=== PATIENT | female | born 1975 | race Caucasian/White ===

== ENCOUNTER → 2018-09-26 08:07 | Outpatient (CLI) | payer BC, SELFPAY ==
--- NOTE | 2018-09-26 08:18 | MM_ITS ---
MM Dig screening mamm BI w/CAD CAD Screening COMPARISON: None, this is baseline INDICATION: There is no personal or family history of breast cancer TECHNIQUE: Standard CC and MLO images were obtained. R2 CAD reviewed. FINDINGS: Prominent fibro glandular densities are seen in the central portions of both breasts. There is no suspicious lesion in either breast and there are no suspicious microcalcifications. IMPRESSION: Moderate diffuse breast density with no suspicious lesion seen BI-RADS Category: 1 Negative RECOMMENDED FOLLOW-UP: 1YR - 1 YEAR FOLLOW-UP (A letter has been sent to the patient regarding results of the study.)
== END ==
PROVIDERS: PCP Internal Medicine Adolescent Medicine; Visit Provider Obstetrics & Gynecology Gynecology
DX: Z12.31 Encounter for screening mammogram for malignant neoplasm of breast (principal)
CPT/HCPCS: 77067

== ENCOUNTER → 2021-08-25 08:16 | Outpatient (CLI) | payer BC, SELFPAY ==
[2021-08-25 09:13] LABS: Basophils % 0.4 % (0.1-2.0); Eosinophils # 0.1 K/mm3 (0.0-0.4); Eosinophils % 0.8 % (0.1-12.0); Hematocrit 41.9 % (37.0-47.0); Hemoglobin 13.2 g/dL (12.2-16.2); Lymphocytes # 0.9 K/mm3 (0.7-4.5); Mean Corpuscular HGB Conc 31.6 g/dL (31.8-35.4); Mean Corpuscular Hemoglobin 30.8 pg (27.0-31.2); Mean Corpuscular Volume 97.7 fl (81-99); Mean Platelet Volume 7.7 fl (7.4-10.4); Monocytes # 0.3 K/mm3 (0.1-1.0); Monocytes % 4.5 % (1.7-9.3); Neutrophils # 5.3 K/mm3 (1.8-7.8); Neutrophils % 81.3 % (37.0-80.0); Platelet Count 331 K/mm3 (142-424); Red Blood Count 4.29 M/mm3 (4.20-5.40); Red Cell Distribution Width 13.3 % (11.5-17.5); White Blood Count 6.5 K/mm3 (4.8-10.8)
[2021-08-25 10:18] LABS: Chloride 103 mmol/L (98-107); Potassium 3.8 mmoL/L (3.5-5.1); Sodium 136 mmol/L (136-145)
[2021-08-25 10:20] LABS: Alanine Aminotransferase 21 U/L (12-78); Alkaline Phosphatase 78 U/L (38-126); Anion Gap 11.8 mEq/L (5-15); Aspartate Amino Transferase 29 U/L (14-36); Blood Urea Nitrogen 11 mg/dl (7-17); Carbon Dioxide 25 mmol/L (22.0-30.0); Estimated Glomerular Filt Rate 109 ml/min (>60); GFR (African American) 132 ML/MIN (>60)
[2021-08-25 10:21] LABS: Albumin Level 3.6 g/dl (3.5-5.0); Albumin/Globulin Ratio 1.2 (1.1-1.8); Calcium 8.3 mg/dl (8.4-10.2); Globulin 2.9 g/dL (1.3-3.2); Glucose 160 mg/dl (74-100); Total Protein,Serum 6.5 g/dl (6.3-8.2)
[2021-08-25 10:24] LABS: Bilirubin,Total < 0.1 mg/dl (0.2-1.3)
[2021-08-25 10:49] LABS: Thyroid Stimulating Hormone 1.67 uIU/mL (0.465-4.68)
[2021-08-26 08:22] LABS: FSH 2.1 mIU/mL (.); LH 3.5 mIU/mL (.)
[2021-08-26 13:27] LABS: Hemoglobin A1C 5.2 % (4.0-6.0)
[2021-08-28 02:08] LABS: Estrogen 73 pg/mL (.)
== END ==
PROVIDERS: Visit Provider Nurse Practitioner Family
DX: I10 Essential (primary) hypertension (principal); N93.9 Abnormal uterine and vaginal bleeding, unspecified; R73.9 Hyperglycemia, unspecified
CPT/HCPCS: 36415; 80053; 82672; 83001; 83002; 83036; 84443; 85025

== ENCOUNTER → 2023-06-07 07:16 | Outpatient (CLI) | payer BC, SELFPAY ==
--- NOTE | 2023-06-07 07:17 | CT_ITS ---
FINAL REPORT TECHNIQUE: Thin section axial CT images with coronal and sagittal reformats were performed through the neck. This study was performed with techniques to keep radiation doses as low as reasonably achievable (ALARA). Individualized dose reduction techniques using automated exposure control or adjustment of mA and/or kV according to the patient''s size were employed. CLINICAL HISTORY: left tonsil lesion x2 years increasing in size COMPARISON: None FINDINGS: The right tonsillar pillar is slightly thicker compared with the left, a nonspecific finding but favor inflammatory etiology. Salivary glands are normal. Larynx is unremarkable. Thyroid gland is unremarkable. Mild right maxillary soft tissue thickening is present. IMPRESSION: Right tonsillar pillar slightly thicker compared with the left without a focal mass identified, nonspecific but favor inflammatory etiology. Reviewed, Interpreted and Dictated by Filiberto Cornejo III, MD Transcribed by Juju Fernández Authenticated and [facility]
== END ==
PROVIDERS: PCP Internal Medicine Adolescent Medicine; Visit Provider Nurse Practitioner
DX: D49.0 Neoplasm of unspecified behavior of digestive system (principal)
CPT/HCPCS: 70490

== ENCOUNTER → 2023-08-22 08:19 | Outpatient (CLI) | payer BC, SELFPAY ==
[2023-08-22 09:00] LABS: Hemoglobin A1C 5.3 % (4.0-6.0)
[2023-08-22 09:58] LABS: Alanine Aminotransferase 14 U/L (12-78); Albumin Level 3.8 g/dl (3.5-5.0); Albumin/Globulin Ratio 1.4 (1.1-1.8); Alkaline Phosphatase 64 U/L (38-126); Anion Gap 10.3 mEq/L (5-15); Aspartate Amino Transferase 26 U/L (14-36); Bilirubin,Total 0.2 mg/dl (0.2-1.3); Blood Urea Nitrogen 13 mg/dl (7-17); Calcium 8.8 mg/dl (8.4-10.2); Carbon Dioxide 28 mmol/L (22.0-30.0); Chloride 103 mmol/L (98-107); Chol/HDL Ratio 2.2 (1-3.5); Cholesterol 181 mg/dl (140-200); Estimated Glomerular Filt Rate 90 ml/min (>60); GFR (African American) 109 ML/MIN (>60); Globulin 2.8 g/dL (1.3-3.2); Glucose 98 mg/dl (74-100); HDL Cholesterol 83 mg/dl (40-60); Potassium 4.3 mmoL/L (3.5-5.1); Sodium 137 mmol/L (136-145); Total Protein,Serum 6.6 g/dl (6.3-8.2); Triglycerides 96 mg/dl (30-150); VLDL Cholesterol 19 mg/dL (0-40)
[2023-08-22 10:09] LABS: Direct LDL Cholesterol 82.09 mg/dL (100-129)
[2023-08-22 10:27] LABS: Thyroid Stimulating Hormone 3.83 uIU/mL (0.465-4.68)
== END ==
PROVIDERS: PCP Internal Medicine Adolescent Medicine; Visit Provider Internal Medicine Endocrinology, Diabetes & Metabolism
DX: E66.3 Overweight (principal); Z68.27 Body mass index [BMI] 27.0-27.9, adult
CPT/HCPCS: 36415; 80053; 80061; 83036; 84443

== ENCOUNTER → 2023-10-20 10:29 | Outpatient (CLI) | payer BC, SELFPAY ==
[2023-10-20 11:06] LABS: Basophils # 0.1 K/mm3 (0-0.2); Basophils % 1.1 % (0.1-2.0); Eosinophils # 0.2 K/mm3 (0.0-0.4); Hematocrit 45.2 % (37.0-47.0); Hemoglobin 14.9 g/dL (12.2-16.2); Lymphocytes # 2.9 K/mm3 (0.7-4.5); Lymphocytes % 38.2 % (10-50); Mean Corpuscular Hemoglobin 30.4 pg (27.0-31.2); Mean Corpuscular Volume 92.3 fl (81-99); Mean Platelet Volume 7.9 fl (7.4-10.4); Monocytes # 0.2 K/mm3 (0.1-1.0); Monocytes % 3.1 % (1.7-9.3); Neutrophils # 4.2 K/mm3 (1.8-7.8); Neutrophils % 55.5 % (37.0-80.0); Platelet Count 357 K/mm3 (142-424); Red Cell Distribution Width 13.4 % (11.5-17.5); White Blood Count 7.6 K/mm3 (4.8-10.8)
[2023-10-20 11:33] LABS: Alanine Aminotransferase 17 U/L (12-78); Albumin Level 4.1 g/dl (3.5-5.0); Albumin/Globulin Ratio 1.4 (1.1-1.8); Alkaline Phosphatase 77 U/L (38-126); Anion Gap 10.3 mEq/L (5-15); Aspartate Amino Transferase 25 U/L (14-36); Bilirubin,Total 0.4 mg/dl (0.2-1.3); Blood Urea Nitrogen 17 mg/dl (7-17); Calcium 8.8 mg/dl (8.4-10.2); Carbon Dioxide 25 mmol/L (22.0-30.0); Chloride 103 mmol/L (98-107); Chol/HDL Ratio 2.9 (1-3.5); Cholesterol 247 mg/dl (140-200); Estimated Glomerular Filt Rate 68 ml/min (>60); GFR (African American) 82 ML/MIN (>60); Glucose 93 mg/dl (74-100); HDL Cholesterol 85 mg/dl (40-60); Potassium 4.3 mmoL/L (3.5-5.1); Sodium 134 mmol/L (136-145); Total Protein,Serum 7.1 g/dl (6.3-8.2); Triglycerides 196 mg/dl (30-150); VLDL Cholesterol 39 mg/dL (0-40)
[2023-10-20 11:37] LABS: Hemoglobin A1C 5.3 % (4.0-6.0)
[2023-10-20 12:07] LABS: Thyroid Stimulating Hormone 2.77 uIU/mL (0.465-4.68)
[2023-10-21 05:05] LABS: FSH 10.8 mIU/mL (.); LH 5.4 mIU/mL (.)
[2023-10-25 02:08] LABS: Estrogen 85 pg/mL (.)
== END ==
LOC: LAB 10:30
PROVIDERS: PCP Internal Medicine Adolescent Medicine; Visit Provider Internal Medicine Adolescent Medicine
DX: Z00.00 Encounter for general adult medical examination without abnormal findings (principal); N95.1 Menopausal and female climacteric states
CPT/HCPCS: 36415; 80053; 80061; 82672; 83001; 83002; 83036; 84443; 85025

== ENCOUNTER 2024-05-21 10:45 | Outpatient (CLI) | payer BC, SELFPAY ==
--- NOTE | 2024-05-21 10:46 | MM_ITS ---
PROCEDURE INFORMATION: Exam: MG Bilateral Screening 3D Mammography Exam date and time: 05/21/2024 10:31 AM Age: 48 years old Clinical indication: Screening. No family history of breast cancer. TECHNIQUE: Imaging protocol: Bilateral Screening tomosynthesis and 2D mammography including computer-aided detection (CAD) when performed. COMPARISON: MG SCBI MM Dig screening mamm BI w/CAD 09/26/2018 8:43 AM FINDINGS: MAMMOGRAPHY: Breast composition: The breasts are heterogeneously dense, which may obscure small masses. Mass: None. Architectural distortion: None. Calcifications: No suspicious calcifications. Asymmetric density: None. Skin thickening: None. Axillary adenopathy: None. IMPRESSION: No mammographic evidence of malignancy. Annual screening is recommended unless otherwise clinically indicated. ASSESSMENT: BI-RADS Category 1: Negative
== END 2024-05-21 23:59 | disposition home or self-care (01) ==
LOC: RAD 10:46
PROVIDERS: PCP Nurse Practitioner Family; Visit Provider Obstetrics & Gynecology
DX: Z12.31 Encounter for screening mammogram for malignant neoplasm of breast (principal)
CPT/HCPCS: 77063; 77067

== ENCOUNTER 2025-06-24 10:17 | Outpatient (CLI) | payer BC, SELFPAY ==
--- OUTSIDE RECORDS SUMMARY | 2024-11-25 06:00 | XMS_ITS ---
Author Organization [facility] Address [address] [place], [place] [address] Care Team Providers Care Molder Pipe Covering Name Role Phone Juanjose Wells Primary Care Provider Tania Kenyon [facility] [phone] REASON FOR VISIT wt ck Encounters Encounter Location Date Provider Diagnosis [facility] [address] [place], [place] [address] 11/25/2024 Tania Kenyon Plan Of Treatment No Information Progress Notes * Sumi NIELSEN SDOB:[birth year] (49 yo F)Acc No.[id number]:11/25/2024 Progress Notes Patient: Sumi CABRAL Provider: DEANNE Jo :1975 A ge:48 Y S ex:Female Date:11/25/2024 Address:[address], [phone] Pcp:Juanjose Wells Subjective: * Chief Complaints: * 1 . Wt ck. * Medical History: Objective: * Vitals: Assessment: Plan: * Treatment: * * Electronic signature of Ana Kenyon APRN on 06/24/2025 at 10:55 AM EDT Sign off status: Pending * Provider: DEANNE Jo Date: 0 11/25/2024 Generated for Radha vázquez/Siva/Jose on: 0 06/24/2025 10:55 AM EDT
--- OUTSIDE RECORDS SUMMARY | 2025-01-25 17:30 | XMS_ITS ---
Author Organization [facility] Address [address] [place] [address] Care Team Providers Care Deckhand Clam Dredge Name Role Phone Juanjose Wells Primary Care Provider [phone] Tania Kenyon Unavailable [phone] Migration, Provider Unavailable Unavailable REASON FOR VISIT [facility] Conversion Encounter Medications Medication SIG (Take, Route, Frequency, Duration) Notes Start Date End Date Status Ondansetron HCl 4 MG 1 tab(s) orally sveta ry 8 hours as needed for nausea; Duration: 3 days prn 09/25/2023 Active Lisinopril-hydroCHLOROthia zide 10-12.5 MG 1 tab(s) orally once a day; Duration: 90 days Active buPROPion HCl ER (XL) 300 MG 1 tab(s) orally every 24 hours; Duration: 90 days Active Acyclovir 400 MG 1 tab(s) orally 3 ti mes a day as needed; Duration: 5 days Active Tri-Sprintec 0.18/0.215/0.25 MG-35 MCG 1 tab(s) orally once a day; Duration: 84 days Active Spironolactone 100 MG 1 tab(s) orally once a day Active Spironolactone 50 MG 1 tab(s) orally Active Zepbound 7.5 MG/0.5ML 7.5 mg subcutaneou sly once a week; Duration: 28 days 01/09/2025 Active Flonase Allergy Relief 50 MCG/ACT 2 spray(s) each nostril once a day prn; Duration: 30 days 10/19/2010 Active Imitrex 100 MG 1 tab(s) orally once , repeat in 2 hours if needed; Duration: 30 days prn 03/19/2013 Active Encounters Encounter Location Date Provider Diagnosis [facility] [address] [place] [address] 01/25/2025 Provider Migration Encounter for weight management Z76.89 Assessments Encounter Date Diagnosis (ICD Code) Assessment Notes Treatment Notes Treatment Clinical Notes Section Notes 01/25/2025 Encounter for weight management (ICD-10 - Z76.89) Plan Of Treatment Medication Medication Name Sig Start Date Stop Date Notes Zepbound 7.5 MG/0.5ML 7.5 mg subcutaneou sly once a week; Duration: 28 days 01/09/2025 Progress Notes * Sumi NIELSEN SDOB:[birth year] (49 yo F)Acc No.[id number]:01/25/2025 Patient: Kartik BEBETOLORELEISumi Provider: Shey andrew Migration :1975 A ge:49 Y S ex:Female Date:01/25/2025 Address:[address] [place] [address], [id number] Pcp:Juanjose Wells Subjective: * Chief Complaints: * 1 . [facility]. * Medical History: * Medications: T aking Imitrex 100 MG Tablet 1 tab(s) orally once, repeat in 2 hours if needed , Notes to Pharmacist: prn, Taking Flonase Allergy Relief 50 MCG/ACT Suspension 2 spray(s) each nostril once a day prn , Taking Spironolactone 50 MG Tablet 1 tab(s) orally , Taking Spironolactone 100 MG Tablet 1 tab(s) orally once a day , Taking Ondansetron HCl 4 MG Tablet 1 tab(s) orally every 8 hours as needed for nausea , Notes to Pharmacist: prn, Taking Tri-Sprintec 0.18/0.215/0.25 MG-35 MCG Tablet 1 tab(s) orally once a day , Taking Acyclovir 400 MG Tablet 1 tab(s) orally 3 times a day as needed , Taking buPROPion HCl ER (XL) 300 MG Tablet Extended Release 24 Hour 1 tab(s) orally every 24 hours , Taking Lisinopril-hydroCHLOROthiazide 10-12.5 MG Tablet 1 tab(s) orally once a day Objective: * Vitals: Assessment: * Assessment: 1. E ncounter for weight management - Z76.89 Plan: * Treatment: * * Electronic signature of Baltazar canales Migration on 06/24/2025 at 10:56 AM EDT Sign off status: Pending * Provider: Shey andrew Migration Date: 0 01/25/2025 Generated for Radha vázquez/Siva/Jose on: 0 06/24/2025 10:56 AM EDT
--- OUTSIDE RECORDS SUMMARY | 2025-06-11 05:45 | XMS_ITS ---
Author Organization [facility] Address [address] [place] [address] Care Team Providers Care Import/Export Specialist Name Role Phone Juanjose Wells Primary Care Provider [phone] Tania Kenyon [phone] Allergies No Known Allergies REASON FOR VISIT Med check Medications Medication SIG (Take, Route, Frequency, Duration) Notes Start Date End Date Status Spironolactone 100 MG 1 tab(s) orally on ce a day Active buPROPion HCl ER (XL) 300 MG 1 tab(s) orally every 24 hours; Duration: 90 days Active Wegovy 1.7 MG/0.75ML 0.75 mL Subcutaneou s once a week; Duration: 28 days 04/09/2025 Active Acyclovir 400 MG 1 tab(s) orally 3 ti mes a day as needed; Duration: 5 days Active Tri-Sprintec 0.18/0.215/0.25 MG-35 MCG 1 tab(s) orally once a day; Duration: 84 days Active Imitrex 100 MG 1 tab(s) orally once , repeat in 2 hours if needed; Duration: 30 days prn 03/19/2013 Active Flonase Allergy Relief 50 MCG/ACT 2 spray(s) each nostril once a day prn; Duration: 30 days 10/19/2010 Active Lisinopril-hydroCHLOROthiaz chely 10-12.5 MG 1 tab(s) orally once a day; Duration: 90 days Active Ondansetron HCl 4 MG 1 tab(s) orally sveta ry 8 hours as needed for nausea; Duration: 3 days prn 09/25/2023 Active Problems Problem Type SNOMED Code ICD Code Onset Dates Problem Status W/U Status Risk Notes Problem Prediabetes (548241478) Prediabetes (R73.03) Active confirmed Vital Signs Temperature 97.5 degrees Fahrenheit 06/11/20 25 Blood pressure systolic 122 mm Hg 06/11/20 25 Blood pressure diastolic 80 mm Hg 025 Heart Rate 82 /min 06/11/2025 Height 61.75 in 06/11/2025 Weight 132 lbs 06/11/2025 BMI 24.34 kg/m2 06/11/2025 Encounters Encounter Location Date Provider Diagnosis [address] [address] 06/11/2025 Tania Kenyon Essential hypertensi on I10 ; Encounter for weight management Z76.89 ; History of obesity in adulthood Z86.39 ; Chronic allergic rhinitis J30.9 ; Cystic acne L70.0 ; Depression with anxiety F41.8 ; Abnormal uterine bleeding N93.9 ; Mild hyperlipidemia E78.5 ; Prediabetes R73.03 and Visit for screening mammogram Z12.31 Assessments Encounter Date Diagnosis (ICD Code) Assessment Notes Treatment Notes Treatment Clinical Notes Section Notes 06/11/2025 Essential hypertension (ICD-10 - I10) Well-control led on current regimen 06/11/2025 Encounter for weight management (ICD-10 - Z76.89) Doing well with transition to [facility]. Near goal weight of 125 lbs which would be BMI 23. She is compliant with diet and exercise recommendations and has been working with a health financial coach through her insurance plan 06/11/2025 History of obesity in adulthood (ICD-10 - Z86.39) 06/11/2025 Chronic allergic rhinitis (ICD-10 - J30.9) Continue loratadine and flonase 06/11/2025 Cystic acne (ICD-10 - L70.0) continue spironolactone 06/11/2025 Depression with anxiety (ICD-10 - F41.8) continue wellbutrin 06/11/2025 Abnormal uterine bleeding (ICD-10 - N93.9) continue OCP 06/11/2025 Mild hyperlipidemia (ICD-10 - E78.5) monitor, fasting labs 06/11/2025 Prediabetes (ICD-10 - R73.03) continue with dietary change/weight loss, update labs as noted 06/11/2025 Visit for screening mammogram (ICD-10 - Z12.31) Plan Of Treatment Medication Medication Name Sig Start Date Stop Date Notes Lisinopril-hydroCHLOROthiazi de 10-12.5 MG 1 tab(s) orally once a day; Duration: 90 days Ondansetron HCl 4 MG 1 tab(s) orally sveta ry 8 hours as needed for nausea; Duration: 3 days 09/25/2023 prn Treatment Notes Assessment Notes Essential hypertension Well-controlled o n current regimen Pending Test Test Name Order Date Mammogram: Screening 06/11/2025 LIPID PANEL, STANDARD (7600) 06/11/2025 COMPREHENSIVE METABOLIC PANEL (59041) CBC (INCLUDES DIFF/PLT) (6399) HEMOGLOBIN A1c (496) 06/11/2025 FERRITIN (457) 06/11/2025 Next Appt Details Follow Up: 6 Months, Reason: Progress Notes * GIA, Sumi SDOB:[birth year] (49 yo F)Acc No.[id number]:06/11/2025 Progress Notes Patient: Sumi CABRAL Provider: DEANNE Jo :1975 A ge:49 Y S ex:Female Date:06/11/2025 Address:[address] [place] [id number] Pcp:Juanjose Wells Subjective: * Chief Complaints: * 1 . Med check. * HPI: g en: 49-year-old female presents today for chronic disease follow-up. No acute concerns. She has recently transition from Zepbound to Wegovy because of insurance formulary changes. She is tolerating it well. Weight loss continues, denies medication side effects at this point. Recently increased to 1.7 mg weekly. She is still faithful with her exercise and dieting. Blood pressure remains very well-controlled on her current regimen. Allergies are stable. Migraines are sporadic. She is still following with [facility] regarding heavy menstrual flow, still taking oral contraceptives and they have not recommended any other intervention. Spironolactone for acne has been very effective. She would like a refill on Zofran for as needed use for motion sickness. Mood has been stable on bupropion. * ROS: R ESPIRATORY: Reviewed, No Symptoms Reported: Y es. C ARDIOLOGY: Reviewed, No Symptoms Reported: Y es. C ONSTITUTIONAL: Weight loss yes, i ntentional. D ERMATOLOGY: no R sarita. G ASTROENTEROLOGY: Reviewed, No Symptoms Reported: Y es. U ROLOGY: Reviewed, No Symptoms Reported: Y es. * Medical History: I nterstitial cystitis, Hypertension, Anxiety, ADD, Adult acne. * Surgical History: S timulation Device Implant 2010, Stimulator device replacement 2017, inject meds into nerve under bladder 09/2022, bladder sling , replaced battery for Stimulation device 01/2024. * Hospitalization/Major Diagno stic Procedure: S timulation Device Impplant 2002. * Family History: F ather: alive, Throat cancer. M other: , Heart Attack. P aternal Grand Father: . P aternal Grand Mother: . M aternal Grand Father: , Suicide. Maternal Grand Mother: . P aternal uncle: alive. P aternal aunt: alive. M aternal uncle: , Heart Attack. M aternal aunt: . S iblings: alive, brother-htn, diagnosed with Hypertension. C hildren: alive, allergies, asthma. 1 brother(s) , 2 sister(s) - healthy. 1 son(s) - healthy. . * Social History: S moking A re you a:: nonsmoker. R ecreational drug use: no. Exercise: yes. Home smoke detector use: yes. Caffeine: no. Living Will: No. Alcohol: socially. Sexually active: yes. Travel outside [place]: no. 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 * Medications: T aking Imitrex 100 MG Tablet 1 tab(s) orally once, repeat in 2 hours if needed , Notes to Pharmacist: prn, Taking Flonase Allergy Relief 50 MCG/ACT Suspension 2 spray(s) each nostril once a day prn , Taking Spironolactone 100 MG Tablet 1 tab(s) orally once a day , Taking Ondansetron HCl 4 MG Tablet 1 tab(s) orally every 8 hours as needed for nausea , Notes to Pharmacist: prn, Taking Tri-Sprintec 0.18/0.215/0.25 MG-35 MCG Tablet 1 tab(s) orally once a day , Taking Acyclovir 400 MG Tablet 1 tab(s) orally 3 times a day as needed , Taking Lisinopril-hydroCHLOROthiazide 10-12.5 MG Tablet 1 tab(s) orally once a day , Taking buPROPion HCl ER (XL) 300 MG Tablet Extended Release 24 Hour 1 tab(s) orally every 24 hours , Taking Wegovy 1.7 MG/0.75ML Solution Auto-injector 0.75 mL Subcutaneous once a week , Discontinued Spironolactone 50 MG Tablet 1 tab(s) orally , Medication List reviewed and reconciled with the patient * Allergies: N .K.D.A. Objective: * Vitals: N urse: dw, Pain: 0, Temp: 97.5, RR: 18, HR: 82, BP: 122/80, Ht: 61.75, Wt: 132, BMI:24.34. * Examination: G eneral Examination: General P leasant and Cooperative, NAD on RA,. Heart: R egular Rate and Rhythm, no murmur, rubs or gallops. Lungs: L CTAB, No wheezes, crackles or rhonchi, Good air movement,. Abdomen: S oft, NTND, BSNA, No organomegaly or peritoneal signs.. Skin: w ithout acute rashes. Peripheral pulses: n ormal (2+) bilaterally. neck s upple,, no thyromegaly,, no lymphadenopathy,. Psych N ormal Mood/Affect. Assessment: * Assessment: 1. E ssential hypertension - I10 (Primary) 2 . E ncounter for weight management - Z76.89 3 . H istory of obesity in adulthood - Z86.39 4 .?Chronic allergic rhinitis - J30.9 5 . C ystic acne - L70.0 6 . D epression with anxiety - F41.8 7 . A bnormal uterine bleeding - N93.9? 8. M ild hyperlipidemia - E78.5 9 . P rediabetes - R73.03? 10. V isit for screening mammogram - Z12.31 Plan: * Treatment: 2. E ayanaunter for weight management Clinical Notes: Doing well with transition to Wegovy. Near goal weight of 125 lbs which would be BMI 23. She is compliant with diet and exercise recommendations and has been working with a health financial coach through her insurance plan 3. C hronic allergic rhinitis Clinical Notes: Continue loratadine and flonase 4. C ystic acne Clinical Notes: continue spironolactone 5. D epression with anxiety Clinical Notes: continue wellbutrin 6. A bnormal uterine bleeding L AB: LIPID PANEL, STANDARD (7600) L AB: COMPREHENSIVE METABOLIC PANEL (76678) L AB: CBC (INCLUDES DIFF/PLT) (6399) L AB: HEMOGLOBIN A1c (496) L AB: FERRITIN (457) Clinical Notes: continue OCP 7. M ild hyperlipidemia L AB: LIPID PANEL, STANDARD (7600) L AB: COMPREHENSIVE METABOLIC PANEL (38182) L AB: CBC (INCLUDES DIFF/PLT) (6399) L AB: HEMOGLOBIN A1c (496) Clinical Notes: monitor, fasting labs 8. P rediabetes L AB: LIPID PANEL, STANDARD (7600) L AB: COMPREHENSIVE METABOLIC PANEL (14310) L AB: CBC (INCLUDES DIFF/PLT) (6399) L AB: HEMOGLOBIN A1c (496) Clinical Notes: continue with dietary change/weight loss, update labs as noted 9. V isit for screening mammogram I maging: Mammogram: Screening 10.?Others? Refill Ondansetron HCl Tablet, 4 MG, 1 tab(s), orally, every 8 hours as needed for nausea, 3 days, 12, Refills 1, Notes to Pharmacist: prn.?? * Preventive Medicine: Screening / Special Tests: M ammogram n eeds to be scheduled. P ap Smear?followed by [facility]. * Follow Up: 6 Months * * Sign off status: Completed true * Provider: DEANNE Jo Date: 0 06/11/2025 Generated for Radha vázquez/Siva/eTransmitting on: 0 06/24/2025 10:56 AM EDT History and Physical Notes * Examination Category Sub-Category Detail Notes Category Not es General Examination Heart: Regular Rate and Rhythm, no murmur, rubs or gallops Lungs: LCTAB, No wheezes, c rackles or rhonchi, Good air movement, Abdomen: Soft, NTND, BSNA, No organomegaly or peritoneal signs. Skin: without acute rashes Peripheral pulses: normal (2+) bilatera lly neck supple,, no thyromeg sonya,, no lymphadenopathy, General Pleasant and Coopera tive, NAD on RA, Psych Normal Mood/Affect
--- NOTE | 2025-06-24 10:19 | MM_ITS ---
PROCEDURE INFORMATION: Exam: MG Bilateral Screening 3D Mammography Exam date and time: 06/24/2025 10:26 AM Age: 49 years old Clinical indication: Screening. No family history of breast cancer. TECHNIQUE: Imaging protocol: Bilateral Screening tomosynthesis and 2D mammography including computer-aided detection (CAD) when performed. COMPARISON: 1. MG MM DIG SCREENING MAMM BI W/CAD 05/21/2024 10:31 AM 2. MG SCBI MM Dig screening mamm BI w/CAD 09/26/2018 8:43 AM FINDINGS: MAMMOGRAPHY: Breast composition: The breasts are heterogeneously dense, which may obscure small masses. Mass: None. Architectural distortion: None. Calcifications: No suspicious calcifications. Asymmetric density: None. Skin thickening: None. Axillary adenopathy: None. IMPRESSION: No mammographic evidence of malignancy. Annual screening is recommended unless otherwise clinically indicated. ASSESSMENT: BI-RADS Category 1: Negative.
--- OUTSIDE RECORDS SUMMARY | 2025-06-24 10:56 | XMS_ITS | Patient Health Record ---
Author Organization [facility] Address [address] [place] [address] Care Team Providers Care Lead Data Architect Name Role Phone Juanjose Wells Primary Care Provider [phone] Tania Kenyon Unavailable [phone] Migration, Provider Unavailable Unavailable Allergies No Known Allergies Medications Medication SIG (Take, Route, Frequency, Duration) Notes Start Date End Date Status Spironolactone 100 MG 1 tab(s) orally on ce a day Active Imitrex 100 MG 1 tab(s) orally once , repeat in 2 hours if needed; Duration: 30 days prn 03/19/2013 Active Flonase Allergy Relief 50 MCG/ACT 2 spray(s) each nostril once a day prn; Duration: 30 days 10/19/2010 Active buPROPion HCl ER (XL) 300 MG 1 tab(s) orally every 24 hours; Duration: 90 days Active Wegovy 1.7 MG/0.75ML 0.75 mL Subcutaneou s once a week; Duration: 28 days 04/09/2025 Active Acyclovir 400 MG 1 tab(s) orally 3 ti mes a day as needed; Duration: 5 days Active Lisinopril-hydroCHLOROthiaz chely 10-12.5 MG 1 tab(s) orally once a day; Duration: 90 days Active Ondansetron HCl 4 MG 1 tab(s) orally sveta ry 8 hours as needed for nausea; Duration: 3 days prn 09/25/2023 Active Tri-Sprintec 0.18/0.215/0.25 MG-35 MCG 1 tab(s) orally once a day; Duration: 84 days Active Immunizations Vaccine Route Administration Date Status Comme nts Influenza-Fluzone 3+years (NON-MEDICARE) IM Intramuscular 08/25/2016 Administered Influenza-Fluzone 3+years (NON-MEDICARE) IM Intramuscular 08/14/2017 Administered Influenza-Fluzone 3+years (NON-MEDICARE) IM Intramuscular 10/05/2018 Administered Hep A Adult 2 Dose IM Intramuscular 10/05/2018 Administere d Hep A Adult 2 Dose IM Intramuscular 04/05/2019 Administere d Problems Problem Type SNOMED Code ICD Code Onset Dates Problem Status W/U Status Risk Notes Problem Attention deficit hyperactivity disorder, predominantly inattentive type (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) Attention or concentration deficit (799.51) Active confirmed Problem Overweight (385935255) Overweight (E66.3) Active confirmed Problem Mixed anxiety and depressive disorder (603221384) Depression with anxiety (F41.8) Active confirmed Problem Essential hypertension (18889868) Essential hypertension (I10) Active confirmed Problem Overweight (649934512) Overweight (BMI 25.0-29.9) (E66.3) Active confirmed Problem BMI 25-29 - overweight (641923914) BMI 27.0-27.9,adult (Z68.27) Active confirmed Problem Restless legs (29398230) RLS (restless legs syndrome) (G25.81) Active confirmed Problem Allergic rhinitis (71844555) Chronic allergic rhinitis (J30.9) Active confirmed Problem Cystic acne (80663646) Cystic acne (L70.0) Active confirmed Problem BMI 25-29 - overweight (380487761) BMI 29.0-29.9,adult (Z68.29) Active confirmed Problem Body mass index 25-29 - overweight (723133365) BMI 26.0-26.9,adult (Z68.26) Active confirmed Problem Prediabetes (297208227) Prediabetes (R73.03) Active confirmed Problem Sciatica (55738855) Acute right-sided back pain with sciatica (M54.41) Active confirmed Problem Hyperlipidemia (57635851) Mild hyperlipidemia (E78.5) Active confirmed Problem Abnormal uterine bleeding (48335929070919) Abnormal uterine bleeding (N93.9) Active confirmed Problem History of endocrine disorder (666048406) History of obesity in adulthood (Z86.39) Active confirmed Vital Signs Heart Rate 82 /min 06/11/2025 Temperature 97.5 degrees Fahrenheit 06/11/2025 Blood pressure diastolic 80 mm Hg 06/11/2025 Height 61.75 in 06/11/2025 Blood pressure systolic 122 mm Hg 06/11/2025 Weight 132 lbs 06/11/2025 BMI 24.34 kg/m2 06/11/2025 Encounters Encounter Location Date Provider Diagnosis [facility] [address] [place] [address] 01/25/2025 Provider Migration Encounter for weight management Z76.89 [facility] [address] [place] [address] 08/22/2024 Tania Chantale Essential hypertensi on I10 ; Encounter for weight management Z76.89 ; History of obesity in adulthood Z86.39 and Left hip pain M25.552 [facility] [address] [place] [address] 01/09/2025 Tania Chantale Essential hypertensi on I10 ; Encounter for weight management Z76.89 ; History of obesity in adulthood Z86.39 and Non-recurrent acute serous otitis media of both ears H65.03 [facility] [address] [place] [address] 01/28/2025 Tania Chantale Insect bite (nonvenomous) of other part of head, initial encounter S00.86XA ; Bitten or stung by nonvenomous insect and other nonvenomous arthropods, initial encounter W57.XXXA ; Encounter for weight management Z76.89 and History of obesity in adulthood Z86.39 [facility] [address] [address] 06/11/2025 Tania Chantale Essential hypertensi on I10 ; Encounter for weight management Z76.89 ; History of obesity in adulthood Z86.39 ; Chronic allergic rhinitis J30.9 ; Cystic acne L70.0 ; Depression with anxiety F41.8 ; Abnormal uterine bleeding N93.9 ; Mild hyperlipidemia E78.5 ; Prediabetes R73.03 and Visit for screening mammogram Z12.31 [facility] [address] [place] [address] 07/12/2024 Juanjose Wells [facility] [address] [place] [address] 08/29/2024 Tania Chantale [facility] [address] [address] 10/07/2024 Tania Chantale Cystic acne L70.0 [facility] [address] [address] 01/10/2025 Tania Chantale Encounter for weight management Z76.89 [facility] [address] [address] 04/09/2025 Tania Chantale Encounter for weight management Z76.89 [facility] [address] [place] [address] 04/14/2025 Juanjose Wells [facility] [address] [place] [address] 06/09/2025 Tania Chantale Assessments Encounter Date Diagnosis (ICD Code) Assessment Notes Treatment Notes Treatment Clinical Notes Section Notes 08/22/2024 Essential hypertension (ICD-10 - I10) Well-controlled on current regimen 08/22/2024 Encounter for weight management (ICD-10 - Z76.89) Doing well on low dose Zepbound. Increase to 5mg once a week for coverage purposes. She is compliant with diet and exercise recommendations and has been working with a health wrestling coach through her insurance plan 10/07/2024 Cystic acne (ICD-10 - L70.0) 01/09/2025 Essential hypertension (ICD-10 - I10) Well-controlled on current regimen 01/09/2025 Encounter for weight management (ICD-10 - Z76.89) Doing well on low dose Zepbound. Increase to 7.5mg once a week and then 10mg weekly if tolerated. She is compliant with diet and exercise recommendations and has been working with a health wrestling coach through her insurance plan 01/10/2025 Encounter for weight management (ICD-10 - Z76.89) 01/25/2025 Encounter for weight management (ICD-10 - Z76.89) 01/28/2025 Insect bite (nonvenomous) of other part of head, initial encounter (ICD-10 - S00.86XA) steroid injection today as noted, continue cool compresses and recommend daily non-drowsy antihistamine such as zyrtec. return precautions reviewed. 01/28/2025 Bitten or stung by nonvenomous insect and other nonvenomous arthropods, initial encounter (ICD-10 - W57.XXXA) 04/09/2025 Encounter for weight management (ICD-10 - Z76.89) 06/11/2025 Essential hypertension (ICD-10 - I10) Well-controlled on current regimen 06/11/2025 Encounter for weight management (ICD-10 - Z76.89) Doing well with transition to Wegovy. Near goal weight of 125 lbs which would be BMI 23. She is compliant with diet and exercise recommendations and has been working with a health wrestling coach through her insurance plan 06/11/2025 History of obesity in adulthood (ICD-10 - Z86.39) 08/22/2024 History of obesity in adulthood (ICD-10 - Z86.39) 01/09/2025 History of obesity in adulthood (ICD-10 - Z86.39) 08/22/2024 Left hip pain (ICD-10 - M25.552) likely some degree of tendonitis, stretching, rest, NSAIDS. Consider imaging and / or PT eval if no improvement 01/09/2025 Non-recurrent acute serous otitis media of both ears (ICD-10 - H65.03) rec resume routine use of flonase 01/28/2025 Encounter for weight management (ICD-10 - Z76.89) Doing well on Zepbound. Continue titration to 10mg once a week as tolerated. She is compliant with diet and exercise recommendations and has been working with a health wrestling coach through her insurance plan 06/11/2025 Chronic allergic rhinitis (ICD-10 - J30.9) Continue loratadine and flonase 06/11/2025 Cystic acne (ICD-10 - L70.0) continue spironolactone 01/28/2025 History of obesity in adulthood (ICD-10 - Z86.39) 06/11/2025 Depression with anxiety (ICD-10 - F41.8) continue wellbutrin 06/11/2025 Abnormal uterine bleeding (ICD-10 - N93.9) continue OCP 06/11/2025 Mild hyperlipidemia (ICD-10 - E78.5) monitor, fasting labs 06/11/2025 Prediabetes (ICD-10 - R73.03) continue with dietary change/weight loss, update labs as noted 06/11/2025 Visit for screening mammogram (ICD-10 - Z12.31) Plan Of Treatment Pending Test Test Name Order Date X ray : Spines, Lumbosacral 02/07/2022 CT Scan : Head, without contrast 011 X ray : Ankle, Left 03/14/2008 Colonoscopy 02/18/2011 EKG : In House 06/14/2013 Physical Therapy 02/07/2022 Mammogram : Bilateral 09/20/2021 Mammogram : Bilateral 11/21/2022 H-CBC with AUTO DIFF 02/18/2011 H-VITAMIN B12 02/18/2011 H-FOLATE, SERUM 02/18/2011 H-CMP 02/18/2011 H-MAGNESIUM 02/18/2011 H-TSH 02/18/2011 h-leutinizing hormone 02/18/2011 MRI : Lumbar Spine w/o contrast 01/27/20 22 H-FSH 02/18/2011 M-Complete Blood Count Auto Diff 021 M-Complete Blood Count Auto Diff 023 M-Comprehensive Metabolic Panel 10/19/20 23 M-Comprehensive Metabolic Panel 12/23/19 20 M-Comprehensive Metabolic Panel 06/03/20 21 M-Basic Metabolic Panel 05/17/2018 M-Hemoglobin A1C 10/19/2023 M-Hemoglobin A1C 08/26/2021 M-Lipid Panel 10/19/2023 M-Lipid Panel 12/23/2019 M-Thyroid Stimulating Hormone 12/23/2019 M-Thyroid Stimulating Hormone 06/03/2021 M-Thyroid Stimulating Hormone 10/19/2023 M-Estrogen 10/19/2023 M-Estrogen 06/03/2021 M-LH 06/03/2021 M-LH 10/19/2023 M-FSH 10/19/2023 M-FSH 06/03/2021 Mammogram: Screening 06/11/2025 LIPID PANEL, STANDARD (7600) 03/14/2024 LIPID PANEL, STANDARD (7600) 06/11/2025 COMPREHENSIVE METABOLIC PANEL (72635) COMPREHENSIVE METABOLIC PANEL (20304) CBC (INCLUDES DIFF/PLT) (6399) 4 CBC (INCLUDES DIFF/PLT) (6399) 5 HEMOGLOBIN A1c (496) 06/11/2025 FERRITIN (457) 06/11/2025 Insurance Providers Payer Name Payer Address Payer Phone Subscriber Number Group Number Insured Name Patient Relationship to Insured Coverage Start Date Coverage End Date [facility] [address] [place] [address] [id number] Sumi Buckner Self - patient is the insured Medications Administered Medication Instructions Date of Administration Dosage Notes Dexamethasone 4mg Injection 01/28/2025 4 mg Kenalog 10/02/2013 1 Kenalog 12/20/2016 1 mL Medical (General) History Medical History History ICD Code interstitial cystitis Hypertension anxiety ADD adult acne Surgical History Surgery Date(Month/Year) Stimulation Device Implant 2010 Stimulator device replacement 2017 inject meds into nerve under bladder 2021 bladder sling replaced battery for Stimulation device 01/2024 Hospitalization History Reason Date(Month/Year) Stimulation Device Impplant 2002
== END 2025-06-24 23:59 | disposition home or self-care (01) ==
LOC: RAD 10:17
PROVIDERS: PCP Nurse Practitioner Family; Visit Provider Nurse Practitioner Family
DX: Z12.31 Encounter for screening mammogram for malignant neoplasm of breast (principal); R92.333 Mammographic heterogeneous density, bilateral breasts
CPT/HCPCS: 77063; 77067